=== PATIENT | male | born 1995 | race Caucasian/White ===

== ENCOUNTER 2018-03-29 19:09 | Emergency (ER) | payer OTHER ==
[2018-03-29] MEDS ORDERED: CYCLOBENZAPRINE HCL 10 MG TABLET PO ONE (22:50)
[2018-03-29] MEDS ORDERED: IBUPROFEN 800 MG TABLET PO ONE (22:50)
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
[2018-03-30] MEDS ORDERED: HYDROCODONE/ACETAMINOPHEN 5-325 MG (6 TAB/ER DISP) PO PRN (00:44)
[2018-03-30 00:57] VITALS: BP 121/83
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
== END 2018-03-30 01:08 | disposition home or self-care (01) ==
LOC: ER 19:09
DX: S43.401A Unspecified sprain of right shoulder joint, initial encounter (principal); S16.1XXA Strain of muscle, fascia and tendon at neck level, initial encounter; S80.12XA Contusion of left lower leg, initial encounter; S00.83XA Contusion of other part of head, initial encounter; R51 Headache; M25.511 Pain in right shoulder; M79.662 Pain in left lower leg; V43.52XA Car driver injured in collision with other type car in traffic accident, initial encounter; F17.200 Nicotine dependence, unspecified, uncomplicated
CPT/HCPCS: 70450; 72125; 99284